=== PATIENT | male | born 1995 | race Caucasian/White ===

== ENCOUNTER 2017-02-09 22:13 | Emergency (ER) | payer OTHER ==
[2017-02-09 22:44] VITALS: BP 127/64
--- NOTE | 2017-02-09 23:57 | EDM.PDOC ---
ED HPI Trauma - General Chief Complaint: Upper Extremity Injury/Pain Stated Complaint: INJURY TO RIGHT HAND Time Seen by Provider: 02/09/17 23:01 Source: Reports: Patient History Limitations: Reports: No limitations - History of Present Illness INITIAL COMMENTS - FREE TEXT/NARRATIVE: Patient presents for evaluation and treatment of a laceration to the right hand. Patient was at work. He was cutting a wire with a razor blade when he accidentally cut the palm of his right hand with a razor blade. He states that he wrapped it immediately and presented to the ER. He denies any numbness or tingling to the hand. He reports full range of motion. Patient is right-handed. Patient reports that his tetanus is up-to-date. Allergies/ADRs: Allergies No Known Allergies Allergy (Verified 02/09/17 22:23) Home Medications: Ambulatory Orders Cephalexin [IJD: Cephalexin] 500 mg PO BID #14 cap 02/10/17 Past Medical History - Past Health History Medical/Surgical History: Denies Medical/Surgical History Social & Family History - Tobacco Use Smoking Status *Q: Never Smoker Second Hand Smoke Exposure: No - Recreational Drug Use Recreational Drug Use: No Review of Systems - Review of Systems Review Of Systems: See Below Musculoskeletal: Reports: other (no decreaed ROM to the hand) Skin: Reports: wound (right hand ventral aspect over the 1st metacarpal) Neurological: Denies: Numbness, Tingling Trauma Exam - Physical Exam Exam: See Below Exam Limited By: No limitations General Appearance: Reports: alert, WD/WN, no apparent distress Respiratory Exam: Reports: no respiratory distress Cardiovascular: Reports: normal peripheral pulses (2+ radial pulses bilaterally) Extremities: Reports: other (Patient is able to make a fist, abduct/adduct fingers, oppose fingers to thumb and flex and extend all fingers. No deficits noted.) Skin: Reports: Normal color, Warm/dry, Other (2 x 1 cm laceration to the right palm over the first metacarpal; no active bleeding, closed at this time) - Kalyn Coma Score Best Eye Response (Kalyn): (4) open spontaneously Best Verbal Response (Verner): (5) oriented Best Motor Response (Kalyn): (6) obeys commands ED TRAUMA EXTREMITY PROCEDURES - Laceration/Wound Repair Right Ventral Hand Lac/wound length in cm: 3 (2x1) Appearance: superficial Closed with: dermabond Course - Vital Signs Last Recorded V/S: Last Vital Signs Temp 36.4 C 02/09/17 22:43 Pulse 60 02/09/17 22:43 Resp 16 02/09/17 22:43 BP 127/64 02/09/17 22:43 Pulse Ox 99 02/09/17 22:43 - Re-Assessments/Exams Free Text/Narrative Re-Assessment/Exam: 02/09/17 23:46 Upon my evaluation the wound had mostly closed. I did attempt to agitate the wound by lifting the skin flap but it was closed. Plan is to some Dermabond to close the remainder of the wound. I will prescribe some prophylactic antibiotics. the wound was thoroughly cleaned however, am concerned about infection. f/u with occupational health as needed. Discharge instructions as documented. Departure - Departure Time of Disposition: 23:53 Disposition: Home, Self-Care 01 Condition: good Clinical Impression: Laceration Prescriptions: Cephalexin [IJD: Cephalexin] 500 mg PO BID #14 cap Instructions: Laceration Care, Adult, [id number] Referrals: PCP,None [Primary Care Provider] - Forms: ED Department Discharge Additional Instructions: Wash the area with gentle soap and water twice a day. Monitor for signs of infection such as increased swelling, pus or redness. Presents to clinic or ER should these develop. Take the cephalexin as prescribed. One tab twice a day for one week. Follow up with occupational health as needed. [id number] Tylenol or Motrin as needed for pain relief. Please return to the ER for any problems, questions or concerns.
== END 2017-02-10 00:05 | disposition home or self-care (01) ==
LOC: JD.ED 22:13
DX: S61.411A Laceration without foreign body of right hand, initial encounter (principal); W45.8XXA Other foreign body or object entering through skin, initial encounter; Y92.69 Other specified industrial and construction area as the place of occurrence of the external cause; Y99.0 Civilian activity done for income or pay
CPT/HCPCS: 12001; 12002; 99283-25